=== PATIENT | male | born 1995 | race African-American/Black ===

== ENCOUNTER 2016-07-21 12:11 | Emergency (ER) | payer SELFPAY ==
[~2016-07-21] VITALS: Ht 172.7 cm; Wt 68.0 kg
[~2016-07-21 12:11] MED LIST: HYDROCODON-ACE1 EA15 ORAL; IBUPROFEN600 MG ORAL; NKM
[2016-07-21 12:18] VITALS: BP 117/74
--- NOTE | 2016-07-21 13:35 | Diagnostic Imaging Report ---
Indication: PAIN Technique: 3 views right hand Comparison: 05/20/2015 Findings: Again demonstrated is an old fracture deformity of the distal aspect of the fifth metacarpal. No acute fractures. No dislocations. The joint spaces are preserved. No significant interim change Impression: No acute bony trauma
[2016-07-21] MEDS ORDERED: IBUPROFEN600 MG ORAL (13:37)
[2016-07-21] MEDS ORDERED: AUGMENTIN 500-1 EACH ORAL (13:37)
[2016-07-21 13:57] VITALS: BP 115/73
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
[2016-07-22] MEDS ORDERED: AUGMENTIN 875-1 EAC1 ORAL (16:03)
[2016-07-22] MEDS ORDERED: BACITRACIN-P28.35 GM TP (16:03)
== END 2016-07-21 14:00 | disposition home or self-care (01) ==
LOC: EMR 12:50
DX: S61.452A Open bite of left hand, initial encounter (principal); W51.XXXA Accidental striking against or bumped into by another person, initial encounter; Y93.9 Activity, unspecified; Y92.9 Unspecified place or not applicable
CPT/HCPCS: 99284

== ENCOUNTER 2016-07-22 14:32 | Emergency (ER) | payer SELFPAY ==
[~2016-07-22] VITALS: Ht 172.7 cm; Wt 68.0 kg
[~2016-07-22 14:32] MED LIST changes: +AUGMENTIN 500-1 EACH ORAL
[2016-07-22] MEDS ORDERED: TdaP Vaccine 0.5ml Syr IM ONE (15:15)
[2016-07-22] MEDS ORDERED: Bacitracin Oint UD TOPIC ONE (15:30)
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
[2016-07-22] MEDS ORDERED: BACITRACIN-P28.35 GM TP (16:03)
[2016-07-22] MEDS ORDERED: AUGMENTIN 875-1 EAC1 ORAL (16:03)
[2016-07-22 16:10] VITALS: BP 109/58
[2016-07-22 16:11] VITALS: BP 106/56
--- NOTE | 2016-07-22 16:53 | Emergency Room Report ---
History of Present Illness General Chief Complaint: Upper Extremity Injury Source: Patient Present Illness HPI this is a duplicate note. Please see previous note created 1 hour prior. Allergies: Coded Allergies: No Known Allergies (Unverified , 09/18/12) Nursing Documentation-[facility] Past Medical History: No Stated History Physical Exam Vital Signs Date Time Temp Pulse Resp B/P Pulse Ox O2 Delivery O2 Flow Rate FiO2 07/22/16 14:37 98.2 92 18 106/56 98 Room Air Medical Decision Making PA Attestation Dr. Li is my supervising Physician whom patient management has been discussed with. ER Course this is a duplicate note. Please see previous note created 1 hour prior. Last Vital Signs Date Time Temp Pulse Resp B/P Pulse Ox O2 Delivery O2 Flow Rate FiO2 07/22/16 14:37 98.2 92 18 106/56 98 Room Air Scripts Bacitracin/Polymyxin B Sulfate (BACITRACIN-POLYMYXIN OINTMENT) 28.35 Gm Oint...g. 1 APPLIC TP BID, #28.3 GM Prov: Dilcia Brian 07/22/16 Amoxicillin/Potassium Clav 875-125* (AUGMENTIN 875-125 TABLET*) 1 Each Tablet 1 TAB ORAL TWICE A DAY for 7 Days, #14 TAB Prov: Dilcia Brian 07/22/16 Referrals: NOT CHOSEN [facility]/,REFERRING (PCP) Dilcia Brian July 22, 2016 16:53
--- NOTE | 2016-07-23 10:55 | Diagnostic Imaging Report ---
Indication: PAIN Technique: 3 views right hand Comparison: 07/21/2016 Findings: Old healed fifth metacarpal fracture deformity is again demonstrated. No acute fractures. No dislocations. The joint spaces are preserved. Impression: No acute process
== END 2016-07-22 16:12 | disposition home or self-care (01) ==
LOC: EMR 15:15
DX: S61.451D Open bite of right hand, subsequent encounter (principal); Z23 Encounter for immunization; S60.221D Contusion of right hand, subsequent encounter
CPT/HCPCS: 90471; 90715; 96372; 99284

== ENCOUNTER 2017-12-27 22:29 | Emergency (ER) | payer MEDICAID ==
[~2017-12-27] VITALS: Ht 172.7 cm; Wt 71.2 kg
[~2017-12-27 22:29] MED LIST changes: +AUGMENTIN 875-1 EAC1 ORAL; +BACITRACIN-P28.35 GM TP
[2017-12-27 23:01] VITALS: BP 127/89
--- NOTE | 2017-12-27 23:08 | Emergency Room Report ---
History of Present Illness General Chief Complaint: Skin Rash/Abscess Source: Patient Present Illness HPI Is a 22-year-old male with no past medical history. He presents with chief complaint of an abscess to the left groin area. Onset for 2 days. Getting worse. Pain is 10 out of 10. Worse with walking. Better with rest. Never had this problem before. Topical ointment not helping. No fever chills but no drainage. Allergies: Coded Allergies: No Known Allergies (Unverified , 09/18/12) Patient History Past Medical History: none, see triage record, old chart reviewed Past Surgical History: none Pertinent Family History: none Social History: Denies: smoking Immunizations: other Reviewed Nursing Documentation: PMH: Agreed; PSxH: Agreed Nursing Documentation-PMH Past Medical History: No Stated History Review of Systems Eye: Denies: eye pain, blurred vision ENT: Denies: ear pain, nose congestion, throat swelling Respiratory: Denies: cough, shortness of breath Cardiovascular: Denies: chest pain, palpitations Gastrointestinal: Denies: abdominal pain, diarrhea, nausea, vomiting Musculoskeletal: Denies: back pain, joint pain Skin: Denies: rash Neurological: Denies: headache, numbness Endocrine: Denies: increased thirst, increased urine Hematologic/Lymphatic: Denies: easy bruising All Other Systems: negative except mentioned in HPI Physical Exam Vital Signs Date Time Temp Pulse Resp B/P (MAP) Pulse Ox O2 Delivery O2 Flow Rate FiO2 12/27/17 22:53 98.2 69 18 127/89 97 Room Air vitals normal Sp02 EP Interpretation: reviewed, normal General Appearance: well appearing, no apparent distress, alert Head: normocephalic, atraumatic Eyes: bilateral eye PERRL, bilateral eye EOMI ENT: hearing grossly normal, normal pharynx Neck: full range of motion, supple, no meningismus Respiratory: chest non-tender, lungs clear, normal breath sounds Cardiovascular #1: regular rate, rhythm, no murmur Gastrointestinal: normal bowel sounds, non tender, no mass, no organomegaly, no bruit, non-distended Genitourinary: other - There is a fluctuant mass at the left inguinal and scrotal area. Tender to palpation. Mild erythema. Measured about 3 cm. Musculoskeletal: back normal, gait/station normal, normal range of motion Neurologic: alert, oriented x3 Psychiatric: mood/affect normal Skin: warm/dry Procedures Incision and Drainage Incision and Drainage : Consent: Verbal Site: left groin/scrotum Blade Size: 11 I & D Procedure: betadine prep, sterile drapes applied, sterile dressing applied, gauze wick placed Wound Location: pelvis Anesthesia: 1% Lidocaine Volume Anesthetic (ccs): 5 Patient Tolerated: Well Complications: None Progress Area cleaned with chlorhexidine. Local anesthetic 1% lidocaine without epinephrine. I made a 2 cm incision. There was moderate to copious amount of purulent discharge. Loculated area explored. Area irrigated. Packing placed. Dressing placed. Patient tolerated procedure without a problem. [place] better. Medical Decision Making Diagnostic Impression: Primary Impression: Scrotal wall abscess ER Course Patient with scrotal wall/groin abscess. Most likely MRSA. We'll discharge home. No evidence of necrotizing fasciitis or deep infection. No testicular involvement. Last Vital Signs Date Time Temp Pulse Resp B/P (MAP) Pulse Ox O2 Delivery O2 Flow Rate FiO2 12/27/17 23:01 98.2 72 18 127/89 97 Room Air Status: improved Disposition: HOME, SELF-CARE Condition: Stable Scripts Hydrocodone/Acetaminophen 5-325* (HYDROCODONE/ACETAMINOPHEN 5-325*) 1 Each Tablet 1 TAB ORAL Q6H PRN for For Pain, #20 TAB 0 Refills Prov: Jos Galvin MD 12/27/17 Trimethoprim/Sulfamethoxazole 160/800* (BACTRIM DS TABLET*) 1 Each Tablet 1 TAB ORAL Q12H, #14 TAB 0 Refills Prov: Jos Galvin MD 12/27/17 Patient Instructions: Abscess Additional Instructions: Follow-up in 2 days for recheck and packing removal. Return if symptom worsen. Jos Galvin MD Dec 27, 2017 23:08
[2017-12-27] MEDS ORDERED: Bactrim-DS 1 tab ORAL ONE (23:15)
[2017-12-27] MEDS ORDERED: Norco 5mg/325mg tab ORAL ONE (23:15)
[2017-12-27] MEDS ORDERED: HYDROCODON-ACE1 EA15 ORAL (23:41)
[2017-12-27] MEDS ORDERED: BACTRIM DS TAB1 EAC1 ORAL (23:41)
[2017-12-27 23:57] VITALS: BP 118/75
[2017-12-27 23:58] VITALS: BP 127/89
== END 2017-12-27 23:58 | disposition home or self-care (01) ==
LOC: EMR 23:10
DX: N49.2 Inflammatory disorders of scrotum (principal)
CPT/HCPCS: 10060; 99283

== ENCOUNTER 2017-12-30 11:48 | Emergency (ER) | payer MEDICAID ==
[~2017-12-30] VITALS: Ht 172.7 cm; Wt 70.3 kg
[~2017-12-30 11:48] MED LIST changes: +BACTRIM DS TAB1 EAC1 ORAL
--- NOTE | 2017-12-30 12:23 | Emergency Room Report ---
History of Present Illness General Chief Complaint: Wound Recheck/Suture Removal Source: Patient Present Illness HPI 22-year-old male presents to the emergency department for packing removal 2 days status post incision and drainage. Patient reports he had abscess in the left groin area that was incised and drained without complications. Patient states he's been taking his antibiotics. Patient states that he has not needed to take the [place] as it was somewhat strong for him and is requesting regular Tylenol or Motrin. Patient denies pain at this time he denies erythema, increased in temperature/1/fevers or chills. Patient denies drainage. Allergies: Coded Allergies: No Known Allergies (Unverified , 09/18/12) Patient History Past Medical History: see triage record Past Surgical History: none Pertinent Family History: none Reviewed Nursing Documentation: PMH: Agreed; PSxH: Agreed Nursing Documentation-PMH Past Medical History: No Stated History Review of Systems All Other Systems: negative except mentioned in HPI Physical Exam Vital Signs Date Time Temp Pulse Resp B/P (MAP) Pulse Ox O2 Delivery O2 Flow Rate FiO2 12/30/17 12:05 97.5 79 16 125/67 97 Room Air Sp02 EP Interpretation: reviewed, normal General Appearance: no apparent distress, alert, GCS 15, non-toxic Head: normocephalic, atraumatic Eyes: bilateral eye normal inspection, bilateral eye PERRL ENT: hearing grossly normal, normal voice Neck: full range of motion Respiratory: lungs clear, normal breath sounds, speaking full sentences Cardiovascular #1: regular rate, rhythm Musculoskeletal: back normal, gait/station normal, normal range of motion, non- tender Neurologic: alert, oriented x3, responsive, motor strength/tone normal, sensory intact, normal gait, speech normal, grossly normal Psychiatric: judgement/insight normal Skin: normal color, no rash, warm/dry, well hydrated, wd healing/no infection noted - healing previously incised abscess of the left inguinal/testicle area with wound packing in place. Medical Decision Making PA Attestation Dr. Lutz is my supervising Physician whom patient management has been discussed with. Diagnostic Impression: Primary Impression: Abscess packing removal ER Course 22-year-old male presents to the emergency department for packing removal 2 days status post incision and drainage. Patient reports he had abscess in the left groin area that was incised and drained without complications. Patient states he's been taking his antibiotics. Patient states that he has not needed to take the [place] as it was somewhat strong for him and is requesting regular Tylenol or Motrin. Patient denies pain at this time he denies erythema, increased in temperature/1/fevers or chills. Patient denies drainage. Ddx considered but are not limited to cellulitis, abscess, cystic acne, necrotizing fasciitis, insect bite. Vital signs: are WNL, pt. is afebrile H&PE are most consistent with healing previously incised abscess of the left inguinal/testicle area. ORDERS: none required at this time, the diagnosis is clinical ED INTERVENTIONS: -wound packing removed.- Still some purulent draining after packing removal. -Tylenol PO -Sterile dressing applied.- pt. given OB pads as well. d/w pt. to continue taking po abx and to look for signs of infection . DISCHARGE: At this time pt. is stable for d/c to home. Will provide printed patient care instructions, and any necessary prescriptions. Care plan and follow up instructions have been discussed with the patient prior to discharge. Last Vital Signs Date Time Temp Pulse Resp B/P (MAP) Pulse Ox O2 Delivery O2 Flow Rate FiO2 12/30/17 12:05 97.5 79 16 125/67 97 Room Air Disposition: HOME, SELF-CARE Condition: Stable Patient Instructions: Wound Packing Additional Instructions: Take medications as directed. Follow up with a Primary Care Provider in 3-5 days, even if your symptoms have resolved. --Please review list of primary care clinics, if you do not already have a primary care provider Return sooner to ED if new symptoms occur, or current symptoms become worse. - Please note that this Emergency Department Report was dictated using [employer]ipast[employer]ile[employer] attendant technology software, occasionally this can lead to erroneous entry secondary to interpretation by the dictation equipment. Dilcia Brian Dec 30, 2017 12:23
[2017-12-30] MEDS ORDERED: TYLENOL EXTRA500 MG ORAL (12:38)
[2017-12-30] MEDS ORDERED: MUPIROCIN22 GM TOPIC (12:38)
[2017-12-30 12:45] VITALS: BP 125/67
== END 2017-12-30 12:46 | disposition home or self-care (01) ==
LOC: EMR 12:35
DX: Z48.01 Encounter for change or removal of surgical wound dressing (principal); L02.211 Cutaneous abscess of abdominal wall
CPT/HCPCS: 99282